=== PATIENT | male | born 2000 | race Caucasian/White ===

== ENCOUNTER 2024-07-16 20:01 | Emergency (ER) | payer SELFPAY ==
[2024-07-16] MEDS: Tetracaine HCl/PF 0.5% 4 ML Bottle EYELF ONE (20:46)
== END 2024-07-16 22:09 | disposition left against medical advice (07) ==
LOC: MW.ED 20:01
DX: S05.02XA Injury of conjunctiva and corneal abrasion without foreign body, left eye, initial encounter (principal); F17.210 Nicotine dependence, cigarettes, uncomplicated; W45.8XXA Other foreign body or object entering through skin, initial encounter
CPT/HCPCS: 99283; J3490